=== PATIENT | male | born 1930 | race Caucasian/White ===

== ENCOUNTER 2017-06-20 11:43 | Emergency (ER) | payer OTHER ==
[~2017-06-20] VITALS: Ht 177.8 cm; Wt 74.8 kg
[2017-06-20] MEDS ORDERED: IV NS 0.9% 1,000 ML BAG IV ONE (12:00)
--- NOTE | 2017-06-20 12:10 | NUR ---
SHANIA GAN FROM [facility] FOR INCREASING GENERAL WEAKNESS, LOSS OF APETITE. PT NOTED COUGHING, PT UNABLE TO PROVIDE INFO WHEN HE STARTED COUGHING. PLACED ON CONT CARDIAC AND POX MONITORING, PLACED ON CONT O2 VIA NC. ALL NEEDS ARE ATTENDED, WILL CONT TO MONITOR.
--- NOTE | 2017-06-20 12:10 | NUR ---
PT ASSISTED FROM ED HALLWAY TO ED BED 10
[2017-06-20 12:20] LABS: BASOPHILS % (AUTO) 0.4 % (0.0-2.0); EOSINOPHILS # (AUTO) 0.1 /CMM (0.0-0.7); EOSINOPHILS % (AUTO) 0.9 % (0.0-6.0); HEMATOCRIT 40 % (39-51); HEMOGLOBIN 13.9 g/dL (13.5-17.5); LYMPHOCYTES % (AUTO) 10.1 % (20.0-44.0); MEAN CORPUSCULAR HEMOGLOBIN 32 PG (26.0-33.0); MEAN CORPUSCULAR HGB CONC 35 g/dl (31.0-36.0); MEAN CORPUSCULAR VOLUME 92 fL (80-96); MONOCYTES # (AUTO) 1.3 /CMM (0.1-1.30); MONOCYTES % (AUTO) 12.2 % (2.0-12.0); NEUTROPHILS # (AUTO) 7.9 /CMM (1.8-8.9); NEUTROPHILS % (AUTO) 76.4 % (43.0-81.0); PLATELET COUNT (AUTO) 391 /CMM (150-450); RDW COEFFICIENT OF VARIATION 12.4 (11.5-15.0); WHITE BLOOD COUNT (AUTO) 10.3 K/uL (4.3-11.0)
[2017-06-20 12:29] LABS: CALCIUM, SERUM 8.5 mg/dL (8.5-10.1); CARBON DIOXIDE 29 mmol/L (21-32); CHLORIDE 104 mmol/L (98-107); CREATININE 0.8 mg/dL (0.6-1.3); GLUCOSE 159 mg/dL (74-106); POTASSIUM 3.7 mmol/L (3.5-5.1); SODIUM SERUM 140 mmol/L (136-145); UREA NITROGEN, BLOOD 18 mg/dL (7-18)
[2017-06-20 12:32] LABS: PROTHROMBIN TIME 10.4 SECS (9.5-12.7)
[2017-06-20 12:35] LABS: ALANINE AMINOTRANSFERASE 17 U/L (12-78); ALBUMIN 2.8 g/dL (3.4-5.0); ALKALINE PHOSPHATASE 106 U/L (46-116); ASPARTATE AMINOTRANSFERASE 22 U/L (15-37); BILIRUBIN,DIRECT 0.2 mg/dL (0.0-0.2); BILIRUBIN,TOTAL 0.7 mg/dL (0.2-1.0)
[2017-06-20 12:37] LABS: TROPONIN I < 0.017 ng/mL (0.00-0.056)
[2017-06-20 13:05] LABS: THYROID STIMULATING HORMONE 0.567 uIU/mL (0.358-3.74)
--- NOTE | 2017-06-20 13:50 | NUR ---
DR. IRIZARRY WAS PAGED
[2017-06-20] MEDS ORDERED: BENZ2TAB7 PO (13:56)
[2017-06-20] MEDS ORDERED: LISI-603 PO (13:56)
[2017-06-20] MEDS ORDERED: ASPI-1169 PO (13:56)
[2017-06-20] MEDS ORDERED: SIMV10TA6 PO (13:56)
[2017-06-20] MEDS ORDERED: ALBU18HF2 INH (13:56)
[2017-06-20] MEDS ORDERED: OLAN15TA3 PO (13:56)
[2017-06-20] MEDS ORDERED: AMLO5TAB2 PO (13:56)
[2017-06-20] MEDS ORDERED: CHOL200026 PO (13:56)
[2017-06-20 14:42] LABS: APPEARANCE,URINE Clear (CLEAR); BILIRUBIN,URINE Negative (NEGATIVE); BLOOD, URINE Trace-lysed Ery/uL (NEGATIVE); COLOR,URINE Yellow (YELLOW); KETONES,URINE Negative (NEGATIVE); LEUKOCYTE ESTERASE ,URINE Negative (NEGATIVE); NITRITE, URINE Negative (NEGATIVE); PH,URINE 6.5 (5.0-8.0); PROTEIN,URINE Negative (NEGATIVE); UGLUCOSE Negative (NEGATIVE); UROBILINOGEN,URINE >=8.0 EU/dL (0.2)
[2017-06-20 15:04] LABS: BACTERIA,URINE None seen /HPF (None Seen); SQUAMOUS EPITHELIAL CELL,UR Few /HPF (None Seen); WBC,URINE 0-3 /HPF (0-3)
--- NOTE | 2017-06-20 15:16 | NUR ---
CALLED [facility] FOR TRANSPORT, ETA 1620 TRIP NUMBER: [id number]
[2017-06-20] MEDS ORDERED: CLONIDINE HCL 0.1 MG TABLET ONE (16:54)
--- NOTE | 2017-06-20 16:59 | NUR ---
MEDICATED W/ CLONIDINE 0.05 PO D/T HIGH BP
[2017-06-20] MEDS ORDERED: CLONIDINE HCL 0.1 MG TABLET PO ONE (17:00)
--- NOTE | 2017-06-20 17:28 | NUR ---
IV removed. Catheter intact and site benign. Pressure and 4x4 applied to site. No bleeding noted.Patient discharged to home in stable condition. Written and verbal after care instructions given. Patient verbalizes understanding of instruction. REPORT GIVEN TO [facility]ANNAN Dahl
[2017-06-20 17:29] VITALS: BP 154/76
== END 2017-06-20 17:29 | disposition home or self-care (01) ==
LOC: ER 11:45
DX: R53.1 Weakness (principal); E78.5 Hyperlipidemia, unspecified; I10 Essential (primary) hypertension; R51 Headache; J44.9 Chronic obstructive pulmonary disease, unspecified; N40.0 Benign prostatic hyperplasia without lower urinary tract symptoms; Z79.82 Long term (current) use of aspirin
CPT/HCPCS: 36415; 70450; 71045; 80048; 80076; 81001; 83605; 84443; 84484; 85025; 85730; 87040; 87081; 87086; 93005; 96360; 99285; A4606; J7030; 81000-TC; Z7610

== ENCOUNTER 2017-06-20 18:39 | Emergency (ER) | payer OTHER ==
[~2017-06-20] VITALS: Ht 177.8 cm; Wt 77.1 kg
[~2017-06-20 18:39] MED LIST: ALBU18HF2 INH; AMLO5TAB2 PO; ASPI-1169 PO; BENZ2TAB7 PO; CHOL200026 PO; LISI-603 PO; OLAN15TA3 PO; SIMV10TA6 PO
[2017-06-20 19:36] VITALS: BP 150/75
[2017-06-20 20:49] LABS: ABG BASE EXCESS 2.6 mmol/L; ABG PCO2 42.8 mmHg (35.0-45.0); ABG PH 7.423 (7.350-7.450); ABG PO2 56.2 mmHg (75.0-100.0); AaDO2 42.3 mmHg; COHb 1.8 % (0.5-1.5); MetHb 0.2 % (0.0-1.5); O2Hb 87.2 % (94.0-97.0); SITE, ABG Right Radial; VENT MODE, BG room air
--- NOTE | 2017-06-20 23:00 | NUR ---
PT ALREADY D/C VIA AMBULANCE BACK TO [facility] PER EMT HOV. NOT IN ROOM.
--- NOTE | 2017-06-20 23:02 | NUR ---
VS 147/77; HR 78; 02 90%; R18
== END 2017-06-20 23:13 | disposition home or self-care (01) ==
LOC: ER 18:46
DX: J44.1 Chronic obstructive pulmonary disease with (acute) exacerbation (principal); I10 Essential (primary) hypertension; E78.5 Hyperlipidemia, unspecified; N40.0 Benign prostatic hyperplasia without lower urinary tract symptoms; Z79.82 Long term (current) use of aspirin; Z79.899 Other long term (current) drug therapy
CPT/HCPCS: 36600; 82803-TC; A4606; Z7610